=== PATIENT | female | born 1930 | race Caucasian/White ===

== ENCOUNTER 2018-03-11 16:35 | Inpatient (IN) | payer OTHER ==
[~2018-03-11] VITALS: Ht 162.6 cm; Wt 49.9 kg
[~2018-03-11 16:35] MED LIST: CARBIDOPA5 GM MC; CARVEDILOL12.5 MG PO; CELEXA20 MG PO; EXELON4.5 MG PO; KLONOPIN0.5 MG/TAB PO; LIPITOR20 MG PO; MICARDIS80 MG PO; NAMENDA10 MG PO
== END 2018-03-21 08:07 | disposition expired | DRG 377 ==
LOC: ER 16:35 → MEDJ 03-12 10:20 → SEC-K 03-12 10:20 → MEDI 03-12 16:30 → MEDJ 03-12 16:30
PROC: 30233N1 Transfusion of Nonautologous Red Blood Cells into Peripheral Vein, Percutaneous Approach (ICD-10-PCS; principal; 2018-03-12)
PROC: B246ZZZ Ultrasonography of Right and Left Heart (ICD-10-PCS; 2018-03-13)
PROC: 4A12X4Z Monitoring of Cardiac Electrical Activity, External Approach (ICD-10-PCS; 2018-03-13)
PROC: BB24ZZZ Computerized Tomography (CT Scan) of Bilateral Lungs (ICD-10-PCS; 2018-03-18)
PROC: 3E0F7GC Introduction of Other Therapeutic Substance into Respiratory Tract, Via Natural or Artificial Opening (ICD-10-PCS; 2018-03-19)
PROC: 4A033R1 Measurement of Arterial Saturation, Peripheral, Percutaneous Approach (ICD-10-PCS; 2018-03-19)
DX: K92.1 Melena (principal); J69.0 Pneumonitis due to inhalation of food and vomit; A41.9 Sepsis, unspecified organism; I21.4 Non-ST elevation (NSTEMI) myocardial infarction; D62 Acute posthemorrhagic anemia; G40.89 Other seizures; I47.1 Supraventricular tachycardia; K52.89 Other specified noninfective gastroenteritis and colitis; E86.0 Dehydration; Z74.01 Bed confinement status; I10 Essential (primary) hypertension; E78.4 Other hyperlipidemia; G20 Parkinson's disease; F02.80 Dementia in other diseases classified elsewhere, unspecified severity, without behavioral disturbance, psychotic disturbance, mood disturbance, and anxiety; Z66 Do not resuscitate; I35.1 Nonrheumatic aortic (valve) insufficiency